=== PATIENT | male | born 1990 ===

== ENCOUNTER 2023-04-24 21:42 | Emergency (ER) | payer SELFPAY ==
[~2023-04-24] VITALS: Ht 175.3 cm; Wt 70.5 kg
== END 2023-04-24 21:54 ==
LOC: ER 21:42
DX: Z04.1 Encounter for examination and observation following transport accident (principal); V49.88XA Car occupant (driver) (passenger) injured in other specified transport accidents, initial encounter; Y93.89 Activity, other specified; Y92.89 Other specified places as the place of occurrence of the external cause; Y99.8 Other external cause status
CPT/HCPCS: 99283